=== PATIENT | female | born 1985 | race Caucasian/White ===

== ENCOUNTER 2017-12-11 20:07 | Emergency (ER) | payer BC, OTHER ==
[~2017-12-11] VITALS: Ht 172.7 cm; Wt 74.7 kg
[~2017-12-11 20:07] MED LIST: IBUP-1223 PO; OXYC-302 PO; SENN-87 PO
[2017-12-11 20:43] LABS: BASOPHILS # (AUTO) 0.06 x10^3/uL (0-0.1); BASOPHILS % (AUTO) 1 % (0-1); EOSINOPHILS # (AUTO) 0.13 x10^3/uL (0-0.4); EOSINOPHILS % (AUTO) 1 % (1-7); LYMPHOCYTES # (AUTO) 2.21 x10^3/uL (1-3.4); LYMPHOCYTES % (AUTO) 20 % (22-44); MD NO; MEAN CORPUSCULAR HEMOGLOBIN 29.9 pg (27.0-34.8); MEAN CORPUSCULAR HGB CONC 34.2 g/dL (32.4-35.8); MEAN CORPUSCULAR VOLUME 87.3 fL (80-100); MEAN PLATELET VOLUME 9.1 fL (7.4-10.4); MONOCYTES # (AUTO) 0.77 x10^3/uL (0.2-0.8); MONOCYTES % (AUTO) 7 % (2-9); NEUTROPHILS # (AUTO) 7.68 x10^3/uL (1.8-6.8); NEUTROPHILS % (AUTO) 71 % (42-75); PLATELET COUNT 272 x10^3/uL (130-400); RED BLOOD COUNT 4.14 x10^6/uL (3.82-5.3); RED CELL DISTRIBUTION WIDTH 13.4 % (9.6-15.2)
[2017-12-11 20:56] LABS: ALANINE AMINOTRANSFERASE 35 U/L (12-78); ALBUMIN 3.2 g/dL (3.4-5.0); ANION GAP 10 mmol/L (5-15); CALCIUM 8.8 mg/dL (8.5-10.1); CHLORIDE 110 mmol/L (98-107); CREATININE 0.58 mg/dL (0.55-1.02)
[2017-12-11 20:58] LABS: ALKALINE PHOSPHATASE 72 U/L (45-117); BILIRUBIN,TOTAL 0.1 mg/dL (0.2-1.0); TOTAL PROTEIN 7.1 g/dL (6.4-8.2)
[2017-12-11] MEDS ORDERED: ACETAMINOPHEN 500 MG TABLET ONE (21:21)
[2017-12-11 21:28] LABS: MICROSCOPIC INDICATED
[2017-12-11 21:29] LABS: CULTURE INDICATED? NO
[2017-12-11] MEDS ORDERED: ACETAMINOPHEN 500 MG TABLET PO ONE (21:30)
[2017-12-11 22:33] VITALS: BP 109/59
== END 2017-12-11 22:35 | disposition home or self-care (01) ==
LOC: ED 21:34
DX: O26.892 Other specified pregnancy related conditions, second trimester (principal); R10.32 Left lower quadrant pain; Z3A.15 15 weeks gestation of pregnancy
CPT/HCPCS: 36415; 76770; 76815; 80053; 81001; 85025; 99285

== ENCOUNTER 2018-03-22 11:50 | Observation (INO) | payer BC ==
[~2018-03-22] VITALS: Ht 172.7 cm; Wt 79.5 kg
[2018-03-22 12:26] LABS: MICROSCOPIC INDICATED
[2018-03-22] MEDS ORDERED: PLEASE ENTER HEIGHT AND WEIGHT MC SCH (12:30)
[2018-03-22] MEDS ORDERED: ONDANSETRON 2MG/ML, 2ML IVPush ONE (12:30)
[2018-03-22] MEDS ORDERED: D5%-LACTATED RINGERS 1,000 ML IV SCH ×2 (12:30→12:56)
[2018-03-22] MEDS ORDERED: ONDANSETRON 2MG/ML, 2ML ONE (12:44)
[2018-03-22 12:58] VITALS: BP 122/66
[2018-03-22] MEDS ORDERED: LACTATED RINGERS 1,000 ML IV SCH ×2 (14:30→15:00)
[2018-03-22 14:32] LABS: MICROSCOPIC NOT IND
[2018-03-22 14:35] LABS: CULTURE INDICATED? NO
== END 2018-03-22 17:35 | disposition home or self-care (01) ==
LOC: LDOP 11:50 → LDIP 14:16
PROVIDERS: ADMIT Obstetrics & Gynecology; ATTEND Obstetrics & Gynecology
DX: O21.2 Late vomiting of pregnancy (principal); Z3A.29 29 weeks gestation of pregnancy
CPT/HCPCS: 59025; 81001; 81003; 87077; 87086; 96361; 96374; G0378; J2405; J7120; J7121; P9612; 96360

== ENCOUNTER 2018-04-03 17:57 | Observation (INO) | payer BC ==
[~2018-04-03] VITALS: Ht 172.7 cm; Wt 78.2 kg
[~2018-04-03 17:57] MED LIST changes: -SENN-87 PO; +SENN-88 PO
[2018-04-03 18:27] VITALS: BP 116/65
[2018-04-03] MEDS ORDERED: D5%-LACTATED RINGERS 1,000 ML IV SCH (18:30)
[2018-04-03] MEDS ORDERED: ONDANSETRON 2MG/ML, 2ML IVPush PRN (18:30)
[2018-04-03] MEDS ORDERED: LACTATED RINGERS 1,000 ML IVBOLUS ONE (18:30)
[2018-04-03] MEDS ORDERED: ONDANSETRON 2MG/ML, 2ML ONE (18:35)
[2018-04-03 18:49] LABS: MICROSCOPIC INDICATED
[2018-04-03 19:22] LABS: BASOPHILS # (AUTO) 0.04 x10^3/uL (0-0.1); BASOPHILS % (AUTO) 0 % (0-1); EOSINOPHILS # (AUTO) 0.03 x10^3/uL (0-0.4); EOSINOPHILS % (AUTO) 0 % (1-7); LYMPHOCYTES # (AUTO) 0.92 x10^3/uL (1-3.4); LYMPHOCYTES % (AUTO) 9 % (22-44); MD NO; MEAN CORPUSCULAR HEMOGLOBIN 29.8 pg (27.0-34.8); MEAN CORPUSCULAR HGB CONC 33.4 g/dL (32.4-35.8); MEAN CORPUSCULAR VOLUME 89.2 fL (80-100); MEAN PLATELET VOLUME 8.9 fL (7.4-10.4); MONOCYTES # (AUTO) 0.74 x10^3/uL (0.2-0.8); MONOCYTES % (AUTO) 7 % (2-9); NEUTROPHILS # (AUTO) 9.11 x10^3/uL (1.8-6.8); NEUTROPHILS % (AUTO) 84 % (42-75); PLATELET COUNT 276 x10^3/uL (130-400); RED BLOOD COUNT 3.91 x10^6/uL (3.82-5.3); RED CELL DISTRIBUTION WIDTH 13.8 % (9.6-15.2)
[2018-04-03 19:30] LABS: ALANINE AMINOTRANSFERASE 63 U/L (12-78); ALBUMIN 2.7 g/dL (3.4-5.0); ANION GAP 8 mmol/L (5-15); CALCIUM 8.5 mg/dL (8.5-10.1); CHLORIDE 107 mmol/L (98-107)
[2018-04-03 19:33] LABS: ALKALINE PHOSPHATASE 105 U/L (45-117); BILIRUBIN,TOTAL 0.5 mg/dL (0.2-1.0); TOTAL PROTEIN 6.8 g/dL (6.4-8.2)
[2018-04-03] MEDS ORDERED: OMEPRAZOLE 20 MG CAPSULE.DR PO ONE (20:30)
[2018-04-03 22:36] LABS: MICROSCOPIC INDICATED
== END 2018-04-03 23:47 | disposition home or self-care (01) ==
LOC: LDOP 17:57 → LDIP 18:38 → INTOOBSV 19:00 → UNDOADMOB 19:00 → LDIP 19:00 → UNDODISOB 23:47
PROVIDERS: ADMIT Obstetrics & Gynecology; ATTEND Obstetrics & Gynecology
DX: O21.2 Late vomiting of pregnancy (principal); O26.893 Other specified pregnancy related conditions, third trimester; R19.7 Diarrhea, unspecified; Z3A.30 30 weeks gestation of pregnancy
CPT/HCPCS: 36415; 59025; 80053; 81001; 85025; 87086; 96360; 96361; 96374; G0378; J2405; J7120; J7121

== ENCOUNTER 2018-04-27 20:48 | Outpatient (CLI) | payer BC ==
[~2018-04-27] VITALS: Ht 172.7 cm; Wt 80.0 kg
[2018-04-27 21:17] VITALS: BP 138/70
[2018-04-27] MEDS ORDERED: PREN1TAB60 PO (21:27)
[2018-04-27] MEDS ORDERED: ACET325T14 PO (21:28)
[2018-04-27 21:38] LABS: RAPID INFLUENZA A Negative (Negative); RAPID INFLUENZA B Negative (Negative)
[2018-04-27 21:55] LABS: MICROSCOPIC INDICATED
== END 2018-04-27 22:10 | disposition home or self-care (01) ==
LOC: LDOP 20:48
PROVIDERS: ATTEND Obstetrics & Gynecology
DX: O26.893 Other specified pregnancy related conditions, third trimester (principal); Z3A.34 34 weeks gestation of pregnancy
CPT/HCPCS: 59025; 81001; 87086; 87400; 99211; G0463

== ENCOUNTER 2018-05-03 17:02 | Emergency (ER) | payer BC ==
[~2018-05-03] VITALS: Ht 172.7 cm; Wt 79.3 kg
[~2018-05-03 17:02] MED LIST changes: +ACET325T14 PO; +PREN1TAB60 PO
--- NOTE | 2018-05-03 17:20 | NUR ---
[place], in hospital gown, pt placed on all monitors. NSR and sinus tach noted.
[2018-05-03] MEDS ORDERED: ACETAMINOPHEN 325 MG TABLET PO ONE (18:00)
[2018-05-03] MEDS ORDERED: ACETAMINOPHEN 325 MG TABLET ONE (18:02)
[2018-05-03 18:35] VITALS: BP 124/74
--- NOTE | 2018-05-03 18:36 | NUR ---
Patient/Caregiver given discharge instructions and they have confirmed that they understand the instructions. Patient ambulatory with steady gait.
== END 2018-05-03 18:38 | disposition home or self-care (01) ==
LOC: ED 18:00
DX: M94.0 Chondrocostal junction syndrome [Tietze] (principal); J20.9 Acute bronchitis, unspecified; Z88.0 Allergy status to penicillin
CPT/HCPCS: 93005; 99283

== ENCOUNTER 2018-05-19 23:47 | Outpatient (CLI) | payer BC ==
[~2018-05-19] VITALS: Ht 172.7 cm; Wt 80.9 kg
[2018-05-20 00:14] LABS: MICROSCOPIC NOT IND
[2018-05-20] MEDS ORDERED: BENZONATATE 100 MG CAPSULE PO ONE (01:30)
== END 2018-05-20 01:25 | disposition home or self-care (01) ==
LOC: LDOP 23:47
PROVIDERS: ATTEND Obstetrics & Gynecology
DX: O26.893 Other specified pregnancy related conditions, third trimester (principal); R10.9 Unspecified abdominal pain; Z3A.37 37 weeks gestation of pregnancy
CPT/HCPCS: 59025; 81003; 87086; 99211; G0463

== ENCOUNTER 2018-05-27 17:05 | Outpatient (CLI) | payer BC ==
[~2018-05-27] VITALS: Ht 172.7 cm; Wt 80.0 kg
[2018-05-27 17:38] LABS: MICROSCOPIC INDICATED
[2018-05-27 17:49] LABS: BASOPHILS # (AUTO) 0.05 x10^3/uL (0-0.1); BASOPHILS % (AUTO) 1 % (0-1); EOSINOPHILS # (AUTO) 0.09 x10^3/uL (0-0.4); EOSINOPHILS % (AUTO) 1 % (1-7); LYMPHOCYTES # (AUTO) 2.32 x10^3/uL (1-3.4); LYMPHOCYTES % (AUTO) 34 % (22-44); MD NO; MEAN CORPUSCULAR HEMOGLOBIN 28.8 pg (27.0-34.8); MEAN CORPUSCULAR HGB CONC 33.9 g/dL (32.4-35.8); MEAN CORPUSCULAR VOLUME 85.1 fL (80-100); MEAN PLATELET VOLUME 9.7 fL (7.4-10.4); MONOCYTES # (AUTO) 0.61 x10^3/uL (0.2-0.8); MONOCYTES % (AUTO) 9 % (2-9); NEUTROPHILS # (AUTO) 3.78 x10^3/uL (1.8-6.8); NEUTROPHILS % (AUTO) 55 % (42-75); PLATELET COUNT 231 x10^3/uL (130-400); RED BLOOD COUNT 4.22 x10^6/uL (3.82-5.3); RED CELL DISTRIBUTION WIDTH 14.6 % (9.6-15.2)
[2018-05-27 18:01] LABS: ALANINE AMINOTRANSFERASE 20 U/L (12-78); ALBUMIN 2.8 g/dL (3.4-5.0); ANION GAP 9 mmol/L (5-15); CALCIUM 9.4 mg/dL (8.5-10.1); CHLORIDE 109 mmol/L (98-107); CREATININE 0.86 mg/dL (0.55-1.02)
[2018-05-27 18:03] LABS: ALKALINE PHOSPHATASE 153 U/L (45-117); BILIRUBIN,TOTAL 0.2 mg/dL (0.2-1.0)
[2018-05-28] MEDS ORDERED: BENZ100C PO (06:10)
== END 2018-05-27 19:00 | disposition home or self-care (01) ==
LOC: LDOP 17:05
PROVIDERS: ATTEND Obstetrics & Gynecology
DX: O13.3 Gestational [pregnancy-induced] hypertension without significant proteinuria, third trimester (principal); Z3A.38 38 weeks gestation of pregnancy
CPT/HCPCS: 36415; 59025; 80053; 81001; 82570; 84156; 84550; 85025; 99211; G0463

== ENCOUNTER 2018-05-28 05:35 | Inpatient (IN) | payer BC ==
[~2018-05-28] VITALS: Ht 172.7 cm; Wt 80.9 kg
[2018-05-28] MEDS ORDERED: OXYTOCIN 30U/ 0.9% NaCL 500ML 500 ML IV SCH (05:36)
[2018-05-28] MEDS ORDERED: LACTATED RINGERS 1,000 ML IV SCH ×2 (05:36→05:45)
[2018-05-28 05:59] VITALS: BP 131/88
[2018-05-28] MEDS ORDERED: METOCLOPRAMIDE 5 MG/ML, 2ML IV ONE (06:00)
[2018-05-28] MEDS ORDERED: LACTATED RINGERS 1,000 ML IVBOLUS ONE (06:00)
[2018-05-28] MEDS ORDERED: SODIUM CITRATE/CITRIC ACID 30 ML UDC PO ONE (06:00)
[2018-05-28 06:03] LABS: BASOPHILS # (AUTO) 0.05 x10^3/uL (0-0.1); BASOPHILS % (AUTO) 1 % (0-1); EOSINOPHILS # (AUTO) 0.12 x10^3/uL (0-0.4); EOSINOPHILS % (AUTO) 2 % (1-7); LYMPHOCYTES # (AUTO) 2.71 x10^3/uL (1-3.4); LYMPHOCYTES % (AUTO) 35 % (22-44); MD NO; MEAN CORPUSCULAR HGB CONC 33.7 g/dL (32.4-35.8); MEAN CORPUSCULAR VOLUME 85.9 fL (80-100); MONOCYTES # (AUTO) 0.64 x10^3/uL (0.2-0.8); MONOCYTES % (AUTO) 8 % (2-9); NEUTROPHILS # (AUTO) 4.22 x10^3/uL (1.8-6.8); NEUTROPHILS % (AUTO) 55 % (42-75); PLATELET COUNT 245 x10^3/uL (130-400); RED BLOOD COUNT 4.22 x10^6/uL (3.82-5.3); RED CELL DISTRIBUTION WIDTH 14.6 % (9.6-15.2)
[2018-05-28] MEDS ORDERED: BENZ100C PO (06:10)
[2018-05-28] MEDS ORDERED: SODIUM CITRATE/CITRIC ACID 30 ML UDC ONE (06:27)
[2018-05-28] MEDS ORDERED: METOCLOPRAMIDE 5 MG/ML, 2ML ONE (06:27)
[2018-05-28] MEDS ORDERED: NEWBORN KIT ONE (06:27)
[2018-05-28] MEDS ORDERED: OXYTOCIN 30U/ 0.9% NaCL 500ML 500 ML ONE (06:27)
[2018-05-28] MEDS ORDERED: HYDROmorphone 2 MG/ML, 1ML ONE (07:35)
[2018-05-28] MEDS ORDERED: FENTANYL PF 100 MCG/2ML ONE (07:35)
[2018-05-28] MEDS ORDERED: OXYTOCIN 10 UNITS/ML, 1ML ONE (07:35)
[2018-05-28] MEDS ORDERED: CEFAZOLIN 1,000 MG ONE (07:35)
[2018-05-28] MEDS ORDERED: ONDANSETRON 2MG/ML, 2ML ONE (07:35)
[2018-05-28] MEDS ORDERED: SODIUM CHLORIDE 0.9% PF 10ML ONE ×2 (07:36)
[2018-05-28] MEDS: OXYTOCIN 30U/ 0.9% NaCL 500ML 500 ML IV SCH (07:42)
[2018-05-28] MEDS: LACTATED RINGERS 1,000 ML IV SCH ×2 (07:42→09:27)
[2018-05-28] MEDS ORDERED: BISACODYL 10 MG SUPP PR PRN (08:00)
[2018-05-28] MEDS ORDERED: ACETAMINOPHEN 325 MG TABLET PO PRN (08:00)
[2018-05-28] MEDS ORDERED: MISOPROSTOL 200 MCG TABLET PR PRN (08:00)
[2018-05-28] MEDS ORDERED: morphine SULFATE 10 MG/ML, 1ML IVPush PRN (08:00)
[2018-05-28] MEDS ORDERED: CARBOPROST TROMETHAMINE 250 MCG/ML, 1ML IM PRN (08:00)
[2018-05-28] MEDS: PRENATAL VIT/IRON/FA 1 EACH TABLET PO SCH (09:00)
[2018-05-28] MEDS ORDERED: KETOROLAC 30 MG/1 ML ONE (10:00)
[2018-05-28] MEDS: KETOROLAC 30 MG/1 ML IV SCH ×3 (10:02→22:01)
[2018-05-28] MEDS ORDERED: morphine SULFATE 10 MG/ML, 1ML ONE (10:28)
[2018-05-28] MEDS ORDERED: HYDROmorphone 1 MG/ML, 1ML IV PRN (10:30)
[2018-05-28 10:50] VITALS: BP 119/73
[2018-05-28] MEDS: OXYcodone/APAP 5/325MG TABLET PO PRN ×3 (11:47→22:02)
[2018-05-28] MEDS: ONDANSETRON 2MG/ML, 2ML IV PRN ×2 (12:03→21:17)
[2018-05-28] MEDS ORDERED: CALCIUM CARBONATE 500 MG TAB.CHEW PO PRN (14:00)
[2018-05-28] MEDS ORDERED: CALCIUM CARBONATE 500 MG TAB.CHEW ONE (14:01)
[2018-05-28 16:00] VITALS: BP 140/80
[2018-05-28 16:53] LABS: BASOPHILS # (AUTO) 0.02 x10^3/uL (0-0.1); BASOPHILS % (AUTO) 0 % (0-1); EOSINOPHILS # (AUTO) 0.05 x10^3/uL (0-0.4); EOSINOPHILS % (AUTO) 0 % (1-7); LYMPHOCYTES # (AUTO) 1.91 x10^3/uL (1-3.4); LYMPHOCYTES % (AUTO) 17 % (22-44); MD NO; MEAN CORPUSCULAR HGB CONC 33.6 g/dL (32.4-35.8); MEAN CORPUSCULAR VOLUME 86.5 fL (80-100); MEAN PLATELET VOLUME 9.8 fL (7.4-10.4); MONOCYTES # (AUTO) 0.73 x10^3/uL (0.2-0.8); MONOCYTES % (AUTO) 6 % (2-9); NEUTROPHILS # (AUTO) 8.81 x10^3/uL (1.8-6.8); NEUTROPHILS % (AUTO) 77 % (42-75); PLATELET COUNT 197 x10^3/uL (130-400); RED BLOOD COUNT 3.84 x10^6/uL (3.82-5.3); RED CELL DISTRIBUTION WIDTH 14.7 % (9.6-15.2)
[2018-05-28 18:00] VITALS: BP 122/78
[2018-05-28 19:10] VITALS: BP 115/71
[2018-05-28] MEDS ORDERED: GUAIFENESIN/DM 200-20MG, 10ML UDC PO PRN (21:00)
[2018-05-29] VITALS: BP 137/79
[2018-05-29] MEDS: OXYcodone/APAP 5/325MG TABLET PO PRN ×6 (02:02→22:15)
[2018-05-29] MEDS: KETOROLAC 30 MG/1 ML IV SCH ×4 (04:14→22:11)
[2018-05-29 05:00] VITALS: BP 129/84
[2018-05-29] MEDS: PRENATAL VIT/IRON/FA 1 EACH TABLET PO SCH (07:50)
[2018-05-29] MEDS: DOCUSATE 100 MG CAPSULE PO PRN (07:50)
[2018-05-29 08:45] VITALS: BP 117/77
[2018-05-29 20:00] VITALS: BP 127/83
[2018-05-29] MEDS: LACTATED RINGERS 1,000 ML IV SCH ×2 (23:42)
[2018-05-29] MEDS: OXYTOCIN 30U/ 0.9% NaCL 500ML 500 ML IV SCH (23:42)
[2018-05-30] MEDS: DOCUSATE 100 MG CAPSULE PO PRN ×3 (01:24→19:03)
[2018-05-30] MEDS: OXYcodone/APAP 5/325MG TABLET PO PRN ×5 (02:20→21:00)
[2018-05-30] MEDS: KETOROLAC 30 MG/1 ML IV SCH (04:40)
[2018-05-30 08:00] VITALS: BP 134/81
[2018-05-30] MEDS: PRENATAL VIT/IRON/FA 1 EACH TABLET PO SCH (08:23)
[2018-05-30] MEDS: IBUPROFEN 600 MG TABLET PO PRN ×2 (11:16→17:41)
[2018-05-30 18:50] VITALS: BP 135/79
[2018-05-31] MEDS: IBUPROFEN 600 MG TABLET PO PRN ×3 (00:47→12:52)
[2018-05-31] MEDS: OXYcodone/APAP 5/325MG TABLET PO PRN ×3 (02:24→12:52)
[2018-05-31] MEDS: PRENATAL VIT/IRON/FA 1 EACH TABLET PO SCH (07:05)
[2018-05-31] MEDS: DOCUSATE 100 MG CAPSULE PO PRN (07:05)
[2018-05-31 09:00] VITALS: BP 131/78
[2018-05-31] MEDS ORDERED: OXYC-302 PO (13:53)
[2018-05-31] MEDS ORDERED: IBUP-1222 PO (13:53)
== END 2018-05-31 15:15 | disposition home or self-care (01) | DRG 785 ==
LOC: LDIP 05:35 → 2NW 10:39
PROVIDERS: ADMIT Obstetrics & Gynecology; ATTEND Obstetrics & Gynecology
PROC: 10D00Z1 Extraction of Products of Conception, Low, Open Approach (ICD-10-PCS; principal; 2018-05-28)
PROC: 0UB70ZZ Excision of Bilateral Fallopian Tubes, Open Approach (ICD-10-PCS; 2018-05-28)
DX: O13.4 Gestational [pregnancy-induced] hypertension without significant proteinuria, complicating childbirth (principal); O34.211 Maternal care for low transverse scar from previous cesarean delivery; O69.81X0 Labor and delivery complicated by cord around neck, without compression, not applicable or unspecified; Z37.0 Single live birth; Z3A.38 38 weeks gestation of pregnancy
CPT/HCPCS: 36415; 85025; 86850; 86900; 88302; 90656; G0378; J0690; J1170; J1885; J2405; J3010; J2270; J2590; J2765; J7120

== ENCOUNTER → 2018-09-11 | Outpatient (CLI) | payer BC ==
[~2018-09-11] MED LIST changes: +BENZ100C PO; +IBUP-1222 PO
== END | disposition home or self-care (01) ==
LOC: CFH 14:01
PROVIDERS: ATTEND Physician Assistant Surgical
DX: N20.1 Calculus of ureter (principal)
CPT/HCPCS: 74018